=== PATIENT | female | born 1980 | race Caucasian/White ===

== ENCOUNTER 2021-01-10 06:00 | Day surgery (SDC) | payer OTHER ==
[~2021-01-10] VITALS: Ht 167.6 cm; Wt 125.0 kg
[~2021-01-10 06:00] MED LIST: DICLOFENAC SODI50 MG PO; FIORICET 50-321 EACH PO; TIZANIDINE HCL2 MG PO; TORADOL30 MG IM
== END 2021-01-10 16:35 | disposition home or self-care (01) ==
LOC: CIR.AMB 06:00
PROVIDERS: ATTEND Surgery
DX: D05.11 Intraductal carcinoma in situ of right breast (principal); D24.2 Benign neoplasm of left breast; Z90.13 Acquired absence of bilateral breasts and nipples; Z20.822 Contact with and (suspected) exposure to COVID-19